=== PATIENT | female | born 1965 | race Caucasian/White ===

== ENCOUNTER → 2016-06-16 | Outpatient (CLI) | payer BC ==
[2015-04-23 11:53] VITALS: BP 161/92
--- NOTE | 2016-06-17 11:16 | RAD ---
DATE: 06/16/16 EXAM: DIGITAL DIAGNOSTIC LT HISTORY: Skin thickening left breast COMPARISON: Bilateral screening mammogram from 02/12/16 This study was interpreted with the benefit of Computerized Aided Detection (CAD ). TECHNIQUE: CC and MLO views of the left breast are obtained FINDINGS: The breast tissue density is [A, almost fatty breast parenchyma ] . There are no dominant suspicious masses, suspicious microcalcifications or evidence of architectural distortion. The skin and nipples are intact IMPRESSION: Negative exam. Patient may be followed up clinically BI-RADS CATEGORY: 1 NEGATIVE RECOMMENDED FOLLOW-UP: Bilateral screening mammogram in January [facility] compliance statement: Patient information was entered into a reminder system with a target due date for the next mammogram. Mammography is a sensitive method for finding small breast cancers, but it does not detect them all and is not a substitute for careful clinical examination. A negative mammogram does not negate a clinically suspicious finding and should not result in delay in biopsying a clinically suspicious abnormality. "Our facility is accredited by the [employer] Mammography Program." TIFFANYD
== END | disposition home or self-care (01) ==
LOC: MAMMO 10:29
PROVIDERS: ATTEND Physician Assistant Medical
DX: R92.8 Other abnormal and inconclusive findings on diagnostic imaging of breast (principal)
CPT/HCPCS: G0206; 77065

== ENCOUNTER 2016-11-27 16:02 | Emergency (ER) | payer BC, OTHER ==
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
[2016-11-27 17:35] VITALS: BP 136/65
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
[2016-11-27] MEDS ORDERED: GABA-585 PO (19:36)
[2016-11-27] MEDS ORDERED: CYCL10TA2 PO (19:36)
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
== END 2016-11-27 19:45 | disposition home or self-care (01) ==
LOC: ER 16:02
DX: S13.4XXA Sprain of ligaments of cervical spine, initial encounter (principal); M54.5 Low back pain; M25.512 Pain in left shoulder; M25.551 Pain in right hip; F41.9 Anxiety disorder, unspecified; F32.9 Major depressive disorder, single episode, unspecified; E66.9 Obesity, unspecified; G89.29 Other chronic pain; G43.909 Migraine, unspecified, not intractable, without status migrainosus; Z88.0 Allergy status to penicillin; Z88.6 Allergy status to analgesic agent; Z88.4 Allergy status to anesthetic agent; Z90.710 Acquired absence of both cervix and uterus; Z90.49 Acquired absence of other specified parts of digestive tract; V43.62XA Car passenger injured in collision with other type car in traffic accident, initial encounter; Y93.I9 Activity, other involving external motion; Y92.410 Unspecified street and highway as the place of occurrence of the external cause; Y99.8 Other external cause status
CPT/HCPCS: 72100; 72125; 73030; 73502; 99284-25

== ENCOUNTER → 2017-02-09 | Outpatient (CLI) | payer BC ==
[~2017-02-09] MED LIST: CYCL10TA2 PO; GABA-585 PO
--- NOTE | 2017-02-11 10:08 | SLEEP ---
DATE OF STUDY: 02/09/2017 HOME SLEEP STUDY The patient is 51 years old, who weighs 238 pounds with a BMI of 45. The patient underwent home sleep study at [facility]. Total recording time was 456 minutes. During the night study, the patient had no central apneas, but 91 obstructive apneas and no mixed apneas. There were 12 hypopneas. The patient's apnea hypopnea index was 13.5 per hour with a supine index of 32 per hour. Review of nocturnal oximetry study revealed that 257 minutes were spent in oxygen saturation of less than 90%. The patient's average oxygen saturation was 87% with the lowest of 79%. Mean heart rate was 70 beats per minute. IMPRESSION: 1. Mild sleep apnea with worsening during supine sleep. Total AHI 13.5 per hour with a supine AHI of 32 per hour. 2. Nocturnal hypoxia secondary to obstructive sleep apnea. RECOMMENDATIONS: 1. The patient would benefit from in-lab CPAP titration study. Alternate treatment options include oral appliance. 2. Weight loss is strongly advised. 3. Avoid TEST FACILITY ENGINEER depressants. 4. Caution regarding driving until symptoms of sleep apnea resolve with the above recommendations. PAULIE DALEY MD DR: JONI/jennifer JOB#: [id number] / [id number] Dr. Bryan Thakur
== END | disposition home or self-care (01) ==
LOC: RT 09:00
PROVIDERS: ATTEND Family Medicine
DX: G47.33 Obstructive sleep apnea (adult) (pediatric) (principal)
CPT/HCPCS: G0399

== ENCOUNTER → 2017-03-03 | Outpatient (CLI) | payer BC ==
--- NOTE | 2017-03-04 16:21 | SLEEP ---
DATE OF STUDY: 03/03/2017 SLEEP STUDY ATTENDING PHYSICIAN: ____ Fabián. The patient is 51 years old who weighs 237 pounds with a BMI of 43. The patient had a previous sleep study at [facility] on 02/09/2017 and was found to have mild ADINA with worsening during supine sleep. Total AHI was 13.5 per hour with a supine AHI of 32 per hour. She was referred back for CPAP titration study. During the night study, the patient spent 432 minutes in bed and slept for 421 minutes with a sleep efficiency of 97%. Sleep latency was 4 minutes with a REM latency of 183 minutes. Overall, sleep architecture showed normal stage 1 and stage 2 sleep, increased slow wave and reduced REM sleep. EKG monitoring revealed normal sinus rhythm, average heart rate was 54 beats per minute. PLMS were not seen. The patient was started on CPAP at 5 cm of water and titrated up to 14 cm of water. At the final pressure, the patient had 72 minutes of sleep. Supine sleep seen, but no REM sleep seen. The patient's AHI was 1 per hour and oxygen saturations during the later part of this pressure remained above 88%. The lowest saturation was 85%. The patient used small-sized nasal pillows. IMPRESSION: 1. Sleep apnea diagnosed by previous sleep study. 2. No clinically significant periodic limb movements during sleep. RECOMMENDATIONS: 1. CPAP at 14 cm of water, should be used on a nightly basis. 2. Follow up in 4-6 weeks to assess compliance with CPAP and to document clinical improvement. 3. Weight loss is strongly advised. 4. Avoid NEUROLOGICAL SURGEON depressants. 5. Caution regarding driving until symptoms of sleep apnea resolve with the use of CPAP. 6. The patient to use small-sized nasal pillows. PAULIE DALEY MD DR: JONI/jennifer JOB#: [id number] / [id number] DEWAYNE
== END | disposition home or self-care (01) ==
LOC: SLPLAB 18:08
PROVIDERS: ATTEND Family Medicine
DX: G47.30 Sleep apnea, unspecified (principal); I10 Essential (primary) hypertension; F32.2 Major depressive disorder, single episode, severe without psychotic features; E66.01 Morbid (severe) obesity due to excess calories
CPT/HCPCS: 95810

== ENCOUNTER → 2020-05-18 | Outpatient (CLI) | payer SELFPAY ==
[2017-09-10 08:37] VITALS: BP 150/110
[~2020-05-18] MED LIST changes: +ACET500T68 PO; +CITA40TA5 PO; +DIPH25CA58 PO; +DOXE10CA PO; +IPRA3AMP29 NEB; +LISI10TA2 PO; +METH125V IJ; +NICO1PAT25 TP; +PANT20TA2 PO; +RANI-376 PO; +TRAZ-123 PO
--- NOTE | 2020-05-18 16:45 | KCIC ---
EXAM: 1. CERVICAL SPINE 3 VIEWS. 2. LEFT SHOULDER 3 VIEWS. 3. LEFT KNEE 2 VIEWS. HISTORY: Pain, osteoarthritis. COMPARISON: None. FINDINGS: The posterior ring of C1 appears hypoplastic. A mild cervical levocurvature may be position al. There is mild degenerative disc disease from C3 through C7. No fractures are identified. There is no prevertebral soft tissue swelling. There are atherosclerotic calcifications of the left carotid b ulb. No fractures are identified at the left shoulder. Glenohumeral joint spaces and alignment are maintai lamine. Acromioclavicular joint spaces and alignment are maintained. No fractures are appreciated at the left knee. There are moderate osteophytes and mild joint space na rrowing at the medial compartment. A 4 mm loose body projects medial to the medial femoral condyle. T here are small osteophytes along the patellofemoral compartment. There is a small joint effusion. Ali gnment is maintained. IMPRESSION: 1. Mild degenerative disc disease from C3 through C7. 2. Unremarkable examination of the left shoulder. 3. Mild to moderate medial compartmental osteoarthritis of the left knee. Electronically signed by: Nithya Maxwell MD (05/18/2020 4:43 PM) [id number]
== END ==
LOC: KCIC 11:33
PROVIDERS: ATTEND Family Medicine
DX: M17.12 Unilateral primary osteoarthritis, left knee (principal); M19.012 Primary osteoarthritis, left shoulder; M50.323 Other cervical disc degeneration at C6-C7 level; R20.2 Paresthesia of skin
CPT/HCPCS: 72040; 73030; 73560

== ENCOUNTER → 2020-06-13 | Outpatient (CLI) | payer OTHER ==
[2017-09-10 08:37] VITALS: BP 150/110
[~2020-06-13] MED LIST changes: +LISI10TA16 PO; -LISI10TA2 PO
--- NOTE | 2020-06-13 17:08 | KCIC ---
EXAM: XR CERVICAL SPINE 2-3V 06/13/2020 2:13 PM CLINICAL INDICATION: Left upper extremity tingling, degenerative disc disease, arthritis COMPARISON: Cervical spine radiograph 05/18/2020 TECHNIQUE: AP, odontoid, lateral, and swimmer's views of the cervical spine FINDINGS: The cervical spine is viewed to C5-C6 on lateral and swimmer's view. The C6 and C7 vertebr al bodies are not well-visualized on those views. There is no acute fracture of the visualized portio n of the cervical spine. Alignment is normal. There is straightening of lordosis. Mild disc space kristine rowing throughout the cervical spine with degenerative endplate changes is unchanged. There is multil evel facet arthrosis. Uncovertebral joint proliferation, greatest in the lower cervical spine, unchan ged. Prevertebral soft tissue is normal. IMPRESSION: Unchanged mild degenerative disc disease. Electronically signed by: Bell Mixon MD (06/13/2020 5:05 PM) [id number]
== END ==
LOC: KCIC 14:09
PROVIDERS: ATTEND Family Medicine
DX: M47.812 Spondylosis without myelopathy or radiculopathy, cervical region (principal); M50.30 Other cervical disc degeneration, unspecified cervical region; R20.2 Paresthesia of skin
CPT/HCPCS: 72040